=== PATIENT | female | born 1970 ===

== ENCOUNTER 2020-06-19 11:07 | Emergency (ER) | payer OTHER ==
[2020-06-19 11:24] VITALS: BP 119/74; PULSE 80
--- NOTE | 2020-06-19 11:43 | EDM.PDOC ---
ED HPI GENERAL MEDICAL PROBLEM - General Chief Complaint: Skin Complaint Stated Complaint: [id number] PARASITE Time Seen by Provider: 06/19/20 11:30 Source of Information: Reports: Patient History Limitations: Reports: No Limitations - History of Present Illness INITIAL COMMENTS - FREE TEXT/NARRATIVE: This 49 yo female patient reports to the ED with a history of parasites in her hair and scalp for the past 1 1/2 - 2 years. The patient reports she was seen by a clinic provider about 1 1/2 years ago and was advised to stop using meth. The patient reports drinking a beer every once and a while, but denies any drug use. The patient reports she can feel "things" moving in her hair, on her forehead and in her ears. Onset: Unknown/Unsure Duration: Constant Location: Reports: Head, Face Quality: Reports: Other Severity: Moderate Improves with: Reports: None Worsens with: Reports: None Context: Reports: Other - Related Data Allergies Allergy/AdvReac Type Severity Reaction Status Date / Time No Known Allergies Allergy Verified 06/19/20 11:26 Home Meds: Home Meds . [No Known Home Meds] 04/04/16 [History] Past Medical History - Past Health History Medical/Surgical History: Denies Medical/Surgical History - Past Surgical History Female Surgical History: Reports: Section Social & Family History - Tobacco Use Smoking Status *Q: Current Some Day Smoker Years of Tobacco use: 15 Packs/Tins Daily: 0.1 - Caffeine Use Caffeine Use: Reports: None - Alcohol Use Days Per Week of Alcohol Use: 7 Number of Drinks Per Day: 2 Total Drinks Per Week: 14 - Recreational Drug Use Recreational Drug Use: No ED ROS GENERAL - Review of Systems Review Of Systems: Comprehensive ROS is negative, except as noted in HPI. ED EXAM, SKIN/RASH Exam: See Below Exam Limited By: No Limitations General Appearance: Alert, WD/WN, Anxious, Mild Distress Eye Exam: Bilateral Eye: EOMI, Normal Inspection, PERRL Ears: Normal External Exam, Normal Canal, Hearing Grossly Normal, Normal TMs Nose: Normal Inspection, Normal Mucosa, No Blood Throat/Mouth: Normal Inspection, Normal Lips, Normal Teeth, Normal Gums, Normal Oropharynx, Normal Voice, No Airway Compromise Head: Atraumatic, Normocephalic Neck: Normal Inspection, Supple, Non-Tender, Full Range of Motion Respiratory/Chest: No Respiratory Distress, Lungs Clear, Normal Breath Sounds, No Accessory Muscle Use, Chest Non-Tender Cardiovascular: Normal Peripheral Pulses, Regular Rate, Rhythm, No Edema, No Gallop, No JVD, No Murmur, No Rub GI/Abdominal: Normal Bowel Sounds, Soft, Non-Tender, No Organomegaly, No Distention, No Abnormal Bruit, No Mass (Female) Exam: Deferred Rectal (Female) Exam: Deferred Back Exam: Normal Inspection, Full Range of Motion, NT Extremities: Normal Inspection, Normal Range of Motion, Non-Tender, No Pedal Edema, Normal Capillary Refill Neurological: Alert, Oriented, CN II-XII Intact, Normal Cognition, Normal Gait, Normal Reflexes, No Motor/Sensory Deficits Psychiatric: Anxious Skin: Warm, Dry, Normal Color, No Rash, Excoriations (scalp) Location, Skin: Head Characteristics: Erythematous (small area of erythema to her front left scalp) Lymphatic: No Adenopathy Course - Vital Signs Last Recorded V/S: Last Vital Signs Temp 35.9 C L 06/19/20 11:23 Pulse 80 06/19/20 11:23 Resp 16 06/19/20 11:23 BP 119/74 06/19/20 11:23 Pulse Ox 100 06/19/20 11:23 - Orders/Labs/Meds Labs: Laboratory Tests 06/19/20 Range/Units 11:53 WBC 4.0 L (5.0-10.0) 10^3/uL RBC 3.92 L (4.2-5.4) 10^6/uL Hgb 12.6 (12.0-16.0) g/dL Hct 38.0 (37.0-47.0) % MCV 96.9 (80-100) fL MCH 32.1 (27.0-34.0) pg MCHC 33.2 (33.0-35.0) g/dL Plt Count 339 (150-450) 10^3/uL Neut % (Auto) 60.6 (42.2-75.2) % Lymph % (Auto) 26.7 (20.5-50.1) % Piatt % (Auto) 6.0 (2-8) % Eos % (Auto) 5.7 H (1.0-3.0) % Baso % (Auto) 1.0 (0.0-1.0) % - Re-Assessments/Exams Free Text/Narrative Re-Assessment/Exam: 06/19/20 12:06 Went to advised the patient of her lab results, but the patient was not in the room at that time. Departure - Departure Time of Disposition: 12:08 Disposition: Against Medical Advice 07 Condition: Undetermined Clinical Impression: Left against medical advice - Discharge Information *PRESCRIPTION DRUG MONITORING PROGRAM REVIEWED*: Not Applicable *COPY OF PRESCRIPTION DRUG MONITORING REPORT IN PATIENT MICHELLE: Not Applicable Forms: ED Department Discharge Care Plan Goals: The patient left the ED prior to receiving lab results or a plan for further care. Sepsis Event Note (ED) - Evaluation Sepsis Screening Result: No Definite Risk - Focused Exam Vital Signs: Vital Signs Temp Pulse Resp BP Pulse Ox 06/19/20 11:23 35.9 C L 80 16 119/74 100
== END 2020-06-19 12:00 | disposition left against medical advice (07) ==
LOC: DL.ED 11:07
DX: L53.9 Erythematous condition, unspecified (principal); F17.210 Nicotine dependence, cigarettes, uncomplicated; Z98.890 Other specified postprocedural states
CPT/HCPCS: 36415; 85025; 99282; 99283

== ENCOUNTER 2024-10-26 17:03 | Emergency (ER) | payer SELFPAY ==
[2024-10-26] MEDS: Sodium Chloride 0.9% 10 ML Syringe FLUSH PRN (17:21)
[2024-10-26] MEDS: Sodium Chloride 0.9% 1,000 ML IV ONE ×2 (17:33→18:56)
[2024-10-26 17:36] LABS: BASOPHILS PERCENT AUTO 0.4 % (0.0-1.0); EOSINOPHILS PERCENT AUTO 9.9 % (1.0-3.0); HEMATOCRIT 39.4 % (37.0-47.0); HEMOGLOBIN 13.2 g/dL (12.0-16.0); LYMPHOCYTES PERCENT AUTO 17.3 % (20.5-50.1); MEAN CORPUSCULAR HEMOGLOBIN 32.5 pg (27.0-34.0); MEAN CORPUSCULAR HGB CONC 33.5 g/dL (33.0-35.0); MONOCYTES PERCENT AUTO 6.3 % (2-8); NEUTROPHILS PERCENT AUTO 66.1 % (42.2-75.2); PLATELET COUNT,PLT 324 10^3/uL (150-450); RED BLOOD CELL COUNT 4.06 10^6/uL (4.2-5.4); WHITE BLOOD CELL COUNT,WBC 7.1 10^3/uL (5.0-10.0)
[2024-10-26 17:54] LABS: HCG QUALITATIVE,SERUM NEGATIVE (NEGATIVE)
[2024-10-26 18:01] LABS: A/G RATIO 0.87; ALANINE AMINOTRANSFERASE,ALT 26 U/L (14-59); ALBUMIN 3.3 g/dL (3.4-5.0); ALKALINE PHOSPHATASE 75 U/L (46-116); ANION GAP 15.2 mEq/L (7-13); ASPARTATE AMNIOTRANSFERASE,AST 21 U/L (15-37); BILIRUBIN TOTAL 0.4 mg/dL (0.2-1.0); BLOOD UREA NITROGEN,BUN 11 mg/dL (7-18); BUN/CREATININE RATIO 12.6 (No establ ref range); CALCIUM 8.4 mg/dL (8.5-10.1); CARBON DIOXIDE,CO2 24 mmol/L (21-32); CHLORIDE,CL 107 mmol/L (98-107); CREATINE KINASE,CK 153 U/L (16-191); CREATININE 0.87 mg/dL (0.55-1.02); EST CRCL DRUG DOSING (CG) 64.97 mL/min; ESTIMATED GFR 78 mL/min (>=60); GLUCOSE RANDOM 80 mg/dL (70-99); POTASSIUM,K 3.2 mmol/L (3.5-5.1); PROTEIN TOTAL,TP 7.1 g/dL (6.4-8.2); SODIUM,NA 143 mmol/L (136-145)
[2024-10-26 18:03] LABS: LACTIC ACID 2.2 mmol/L (0.4-2.0)
[2024-10-26] MEDS: Iopamidol 755 Mg/ML 100 ML Bottle IV ONE ×4 (18:04→20:20)
[2024-10-26] MEDS ORDERED: Iopamidol 612 MG/ML 100 ML Bottle IVPUSH ONE (18:09)
[2024-10-26] MEDS ORDERED: Naloxone 2 MG/2 ML Syringe IVPUSH PRN (18:47)
[2024-10-26] MEDS: Morphine 2 MG/ML SYRINGE IVPUSH ONE (18:50)
[2024-10-26] MEDS: Potassium Chloride 10 MEQ in Premix Bag 1 BAG IV ONE (19:01)
[2024-10-26] MEDS: Doxycycline 100 MG in Sodium Chloride 0.9% 100 ML IV ONE (21:56)
[2024-10-26 23:00] VITALS: BP 99/76; PULSE 72
[2024-10-26] MEDS: Mupirocin Oint 22 GM Tube TOP ONE (23:41)
== END 2024-10-26 22:58 | disposition home or self-care (01) ==
LOC: DL.ED 17:03
DX: L01.00 Impetigo, unspecified (principal); E87.20 Acidosis, unspecified; E87.6 Hypokalemia; R91.1 Solitary pulmonary nodule; R60.0 Localized edema; F17.210 Nicotine dependence, cigarettes, uncomplicated; Z79.899 Other long term (current) drug therapy
CPT/HCPCS: 36415; 70487; 70498; 71275; 80053; 82550; 83605; 84703; 85025; 86140; 96361; 96365; 96367; 96375; 99284; A9270; J2270; J3480; J3490; J7030; Q9967

== ENCOUNTER 2025-02-23 15:35 | Emergency (ER) | payer MEDICAID ==
[2025-02-23 15:51] VITALS: BP 132/77; PULSE 79
[2025-02-23] MEDS: Amoxicillin 500 MG Cap PO ONE (16:25)
[2025-02-23] MEDS: Sulfamethoxazole/Trimethoprim 800-160 MG Tab PO ONE (16:25)
[2025-02-23] MEDS: Acetaminophen/HYDROcodone 325-5 MG Tab PO ONE (16:25)
[2025-02-23] MEDS: Acetaminophen 325 MG Tab PO ONE (16:26)
[2025-02-23] MEDS: Take Home: Sulfamethoxazole/Trimethoprim 800-160 MG Tab, 6 Tab Pack PO ONE (16:33)
[2025-02-23] MEDS: Take Home: Amoxicillin/Clavulanate K 875-125 MG Tab, 6 Tab Pack PO ONE (16:33)
[2025-02-23] MEDS: Take Home: Acetaminophen/oxyCODONE 325-5 MG, 5 Tab Pack PO ONE (16:33)
== END 2025-02-23 16:40 | disposition home or self-care (01) ==
LOC: DL.ED 15:35
DX: L03.211 Cellulitis of face (principal); F17.210 Nicotine dependence, cigarettes, uncomplicated
CPT/HCPCS: 99283; 99284; A9270

== ENCOUNTER 2025-03-18 20:02 | Emergency (ER) | payer MEDICAID ==
[2025-03-18] MEDS: diphenhydrAMINE 50 MG/ML SDV IVPUSH ONE (20:18)
[2025-03-18] MEDS: fentaNYL 100 MCG/2 ML SDV IVPUSH ONE (20:19)
[2025-03-18] MEDS: Ketorolac 30 MG/ML SDV IVPUSH ONE (20:20)
[2025-03-18] MEDS: Thiamine 100 MG in Sodium Chloride 0.9% 1,000 ML IV ONE (20:21)
[2025-03-18 20:37] LABS: BASOPHILS PERCENT AUTO 0.4 % (0.0-1.0); EOSINOPHILS PERCENT AUTO 7.3 % (1.0-3.0); HEMATOCRIT 36.5 % (37.0-47.0); HEMOGLOBIN 12.4 g/dL (12.0-16.0); MEAN CORPUSCULAR HEMOGLOBIN 32.7 pg (27.0-34.0); MEAN CORPUSCULAR VOLUME 96.3 fL (80-100); MONOCYTES PERCENT AUTO 7.9 % (2-8); NEUTROPHILS PERCENT AUTO 70.4 % (42.2-75.2); PLATELET COUNT,PLT 319 10^3/uL (150-450); RED BLOOD CELL COUNT 3.79 10^6/uL (4.2-5.4); WHITE BLOOD CELL COUNT,WBC 7.8 10^3/uL (5.0-10.0)
[2025-03-18 20:59] LABS: ALBUMIN 3.3 g/dL (3.4-5.0); ANION GAP 11.3 mEq/L (7-13); BILIRUBIN TOTAL 0.5 mg/dL (0.2-1.0); BUN/CREATININE RATIO 24.3 (No establ ref range); CALCIUM 8.5 mg/dL (8.5-10.1); CREATININE 1.03 mg/dL (0.55-1.02); EST CRCL DRUG DOSING (CG) 57.09 mL/min; MAGNESIUM 1.9 mg/dL (1.8-2.4); POTASSIUM,K 3.3 mmol/L (3.5-5.1); PROTEIN TOTAL,TP 6.6 g/dL (6.4-8.2)
[2025-03-18] MEDS: LORazepam 2 MG/ML SDV IVPUSH ONE (21:27)
[2025-03-19] MEDS: Dexamethasone 4 MG/ML SDV IVPUSH ONE (07:30)
[2025-03-19] MEDS: Morphine 4 MG/ML Syringe IVPUSH PRN (08:46)
[2025-03-19 09:15] VITALS: BP 114/74; PULSE 67
== END 2025-03-19 10:20 | disposition home or self-care (01) ==
LOC: DL.ED 20:02
DX: L25.8 Unspecified contact dermatitis due to other agents (principal); F17.200 Nicotine dependence, unspecified, uncomplicated
CPT/HCPCS: 36415; 80053; 80307; 83735; 85025; 87081; 87430; 96365; 96375; 99283; J1100; J1200; J1885; J2060; J2270; J3010; J3411; 99284